=== PATIENT | female | born 2000 | race Caucasian/White ===

== ENCOUNTER 2025-02-01 13:22 | Outpatient (AMB) | payer OTHER, SELFPAY ==
--- NOTE | 2025-02-01 13:24 | MHC.PC.OV ---
Vital Signs 02/01/25 13:25 Height 5 ft 2.75 in Weight 141 lb 4 oz BMI 25.2 BP 114/72 Blood Pressure Location Lt brachial Position Sitting Pulse 112 H Pulse Source Pulse Oximeter Temp 97.1 F Temp Source Temporal Artery Scan Pulse Oximetry (%) 98 Oxygen Delivery Method Room Air Intake Visit Reasons: establish care Accompanied by: Mother Allergies No Known Allergies Allergy (Verified 02/01/25 13:45) Medication List - Last Reviewed 02/01/25 by Rhona Joseph CMA brivaracetam (Briviact) 100 mg PO BID clobazam 20 mg PO BEDTIME clonazepam 2 mg PO .prn lamotrigine 200 mg PO BID Tobacco use date assessed: 02/01/25 Dental Screening Dental Screen Date: 02/01/25 Did you have a dental visit in the last 12 months?: No Did you have a dental problem in the last 6 months where you did not have access to dental care?: No Was dental information given to patient?: No HPI establish care HPI Details 24 year old female coming to the office for the first time. Presenting with seizure disorder management. The patient has experienced seizures since 13 months of age, with no identified triggers. Recent increase in seizure frequency since November 2022, with two grand mal seizures occurring [id number] on December 18. Seizures are managed with Briviact, clonazepam, and lamotrigine, but these medications cause significant fatigue. The patient experiences severe depression and anxiety, exacerbated by a family tragedy. No prior medication for depression due to concerns about interactions with current seizure medications. The patient reports constipation and abdominal pain, with symptoms suggestive of irritable bowel syndrome. [facility] Surgical History No pertinent past surgical history Family History Mother Substance abuse Mental health disorder Father Mental health disorder Sister Mental health disorder Brother Motorcycle accident Social History Household Members: Family Housing: House Alcohol intake: never Patient Tobacco Use Status: Never used Tobacco e-Cigarette/Vaping Use: Never Used service: No Current occupational status: unemployed Cognitive needs: No Hearing needs: No Vision needs: Yes Female Reproductive History Menstrual control method: none Questionnaire PHQ-9 Over the last 2 weeks, how often have you been bothered by any of the following problems? 1. Little interest or pleasure in doing things: not at all 2. Feeling down, depressed, or hopeless: nearly every day 3. Trouble falling or staying asleep, or sleeping too much: nearly every day 4. Feeling tired or having little energy: nearly every day 5. Poor appetite or overeating: nearly every day 6. Feeling bad about yourself - or that you are a failure or have let yourself or your family down: more than half the days 7. Trouble concentrating on things, such as reading the newspaper or watching television: nearly every day 8. Moving or speaking so slowly that other people could have noticed. Or the opposite - being so fidgety or restless that you have been moving around a lot more than usual: nearly every day 9. Thoughts that you would be better off or of hurting yourself in some way: not at all Total score: 20 Depression Screening Interpretation: Positive (Declines medication - referral for counseling placed ) Depression Screening Follow-up: Existing condition Depression Screening Done: Yes 09246 - PHQ-9 Billing: Yes Source: Developed by Drs. Mina Berrios, Antonia Hassan, Delfino Centeno and colleagues, with an educational walt from [email or web address]. Thrive Questionnaire Date Thrive assessed: 01/25/25 I am a: Parent/Caregiver What is your living situation today?: I have a steady place to live Within the past 12 months, did the food you bought not last and you didn't have the money to get more?: Never true Within the past 12 months, did you worry whether your food would run out before you got money to buy more?: Never true Do you have trouble paying for medicines?: No Do you have trouble getting transportation to medical appointments?: No Do you have trouble paying your heating and electricity bill?: No Do you have trouble taking care of your child, family member or friend?: Yes Do you have trouble with day-to-day activities such as bathing, preparing meals, shopping, managing finances, etc.?: Yes Are you currently unemployed and looking for a job?: Yes Are you interested in more education?: No Please select the resources that you would like help with: None Currently or been in a relationship where the following occur: No concerns reported THRIVE Score: 0 AUDIT C Alcohol Use Questionnaire (AUDIT-C) 1. How often do you have a drink containing alcohol?: Never 3. How often do you have six or more drinks on one occasion?: Never Total Score: 0 SYLVIA-7 AMB Questionnaire SYLVIA-7 Date SYLVIA - 7 assessed: 02/01/25 Feeling nervous, anxious, or on edge: 2 = More than half the days Not being able to stop or control worryin = Nearly every day Worrying too much about different things: 3 = Nearly every day Trouble relaxin = Nearly every day Being so restless that it is hard to sit still: 3 = Nearly every day Becoming easily annoyed or irritable: 3 = Nearly every day Feeling afraid as if something awful might happen: 3 = Nearly every day Total SYLVIA-7 score (0-4 normal; 5-9 mild; 10-14 moderate; 15-21 severe): 20 Source: Developed by Drs. Mina Berrios, Antonia Hassan, Delfino Centeno and colleagues, with an educational walt from [email or web address]. SYLVIA-7 Assessment Billing SYLVIA-7 Assessment Tool: SYLVIA-7 Assessment 02962 Review of Systems Const Denies body aches, Denies chills, Denies fever(s), Denies headache(s) and Denies poor appetite Eyes Reports no additional complaints ENT Denies dizziness and Denies headache(s) Card Denies chest pain, Denies lightheadedness and Denies dyspnea Resp Denies cough and Denies dyspnea GI Denies abdominal pain, Reports constipation, Denies diarrhea, Denies nausea and Denies vomiting Reports no additional complaints Musc Reports no additional complaints and Denies abnormal gait Skin/Breast Reports system reviewed and no additional complaints, except as documented Neuro Denies abnormal gait, Denies dizziness and Denies headache(s) Psych Reports no additional complaints Physical exam (Primary Care) Vital Signs: Last Vital Signs Temp 97.1 F 02/01/25 13:25 Pulse 112 H 02/01/25 13:25 BP 114/72 02/01/25 13:25 Pulse Ox 98 02/01/25 13:25 Oxygen Delivery Method Room Air 02/01/25 13:25 BMI result Body Mass Index 25.2 Tobacco/Smoking Status: Tobacco use Status Tobacco use date assessed 02/01/25 02/01/25 13:31 Patient Tobacco Use Status Never used Tobacco 02/01/25 13:34 e-Cigarette/Vaping Use Never Used 02/01/25 13:31 PHQ-9: PHQ-9 Score PHQ-9: Total score 20 02/01/25 13:46 Depression Screening Interpretation: Positive (Declines medication - referral for counseling placed ) Depression Screening Follow-up: Existing condition Thrive Assessment: Date of Thrive Assessment Date Thrive assessed 01/25/25 02/01/25 13:31 Currently or been in a relationship where the following occur: No concerns reported Const General: cooperative, healthy appearing, comfortable and no acute distress Orientation/consciousness: patient oriented x3 HENMT Head: Yes normocephalic Ears: hearing grossly normal bilaterally General nose exam: Normal external nose present Eyes General: appearance normal, both eyes and all related structures Conjunctivae: conjunctivae normal Neck Neck: Yes full ROM and Yes no lymphadenopathy Resp Effort & Inspection: normal respiratory effort Auscultation: clear to auscultation bilaterally, no crackles, no rales, no rhonchi and no wheezes Cardio Rate: regular rate Rhythm: regular rhythm Skin General skin exam: no rashes or lesions noted Neuro General: patient oriented x3 Gait exam (Neuro): Normal gait present Extrem General: Yes normal to inspection, Yes full ROM and No edema Psych Affect: normal affect Attitude: cooperative Insight: Good insight present (Psych) Judgement: Good judgement present (Psych) Coding Level of Care Code New Pt Level 4 (76853) Diagnoses Seizure disorder G40.909 Anxiety F41.9 Depression F32.A Constipation K59.00 Additional Codes SYLVIA-7 Assessment Billing - SYLVIA-7 Assessment Tool: SYLVIA-7 Assessment 01095 ([id number]) PHQ-9 - 95745 - PHQ-9 Billing: Yes ([id number]) Assessment & Plan Assessment & Plan (1) Seizure disorder: Comment: [facility] - Code(s): G40.909 - Epilepsy, unspecified, not intractable, without status epilepticus Category: Medical Plan: Patient is currently following with [facility] for management of her seizure disorder. She is on Briviact, clobazam, clonazepam and lamotrigine as her current medication regimen. She does mentioned breakthrough seizures that her neurologist is aware of and she is currently undergoing medication adjustments with her neurologist. (2) Anxiety: Code(s): F41.9 - Anxiety disorder, unspecified Category: Medical Plan: Patient has a history of anxiety and depression that has recently exacerbated in 2022 by family tragedy. She is not interested in medications at this time and states that she is anxious when it comes to medications. She is interested in counseling referral which was placed today. She agrees to reach out if she is interested in medical management or further evaluation. (3) Depression: Code(s): F32.A - Depression, unspecified Category: Medical Plan: See above (4) Constipation: Code(s): K59.00 - Constipation, unspecified Category: Medical Plan: Discussed with patient 3 rows of constipation; drinking plenty of water, increase fiber intake and exercise as tolerated. Her symptoms seem very similar to irritable bowel syndrome and I discussed adding fiber supplement as well as a low FODMAP diet to try and address her symptoms. If constipation worsens or does not improve plan to refer to gastroenterology for further evaluation and treatment. I also discussed adding MiraLax daily Denies any blood in the stool, abdominal pain, nausea or vomiting. Plan The patient will continue to be monitored for seizure disorder with regular follow-ups with the neurologist every six months. Adjustments to the current medication regimen, including Briviact, clonazepam, and lamotrigine, will be considered based on seizure frequency and side effects such as fatigue. Blood work will be conducted to monitor medication levels and vitamin D status, as these have been identified as potential factors influencing seizure activity. For the management of depression and anxiety, a referral for counseling has been made. Dietary modifications, including increased fiber intake and a low FODMAP diet, are recommended to address gastrointestinal symptoms suggestive of irritable bowel syndrome. The patient is advised to maintain adequate hydration and consider fiber supplements to alleviate constipation. This note was constructed using voice recognition software. While every effort has been made to ensure accuracy and hand folder, still areas may have been included sometimes these areas may affect the content or meeting of the given symptoms. Total time spent caring for the patient today was 30 minutes. This includes time spent before the visit reviewing the chart, time spent during the visit, and time spent after the visit and documentation. Patient was informed and verbally consented to the use of an ambient scribe for clinic note documentation during this visit. Orders: Orders Transglutaminase Ab IgG Today K59.00 - Constipation, unspecified Comprehensive Met. Panel Today G40.909 - Epilepsy, unspecified, not intractable, without status epilepticus, Z00.00 - Encounter for general adult medical examination without abnormal findings Vitamin D 25-OH Total Today G40.909 - Epilepsy, unspecified, not intractable, without status epilepticus, Z00.00 - Encounter for general adult medical examination without abnormal findings Complete Blood Count Auto Diff Today G40.909 - Epilepsy, unspecified, not intractable, without status epilepticus, Z00.00 - Encounter for general adult medical examination without abnormal findings Vitamin B12 and Folate Today G40.909 - Epilepsy, unspecified, not intractable, without status epilepticus, Z13.21 - Encounter for screening for nutritional disorder TSH reflex Free T4 Today G40.909 - Epilepsy, unspecified, not intractable, without status epilepticus, Z00.00 - Encounter for general adult medical examination without abnormal findings Free T4 (Free Thyroxine) Today G40.909 - Epilepsy, unspecified, not intractable, without status epilepticus, Z00.00 - Encounter for general adult medical examination without abnormal findings IRON PROFILE Today G40.909 - Epilepsy, unspecified, not intractable, without status epilepticus Referrals Counseling Referral F32.A - Depression, unspecified, F41.9 - Anxiety disorder, unspecified
[2025-02-01 13:25] VITALS: BP 114/72; PULSE 112; TEMP 36.2; O2SAT 98; BMI 25.2
== END 2025-02-01 14:26 | disposition home or self-care (01) ==
LOC: HO.HMCH 13:23
DX: G40.909 Epilepsy, unspecified, not intractable, without status epilepticus (principal); F41.9 Anxiety disorder, unspecified; F32.A Depression, unspecified; K59.00 Constipation, unspecified

== ENCOUNTER → 2025-02-01 13:22 | Outpatient (BNVA) | payer OTHER, SELFPAY | DX: G40.909 Epilepsy, unspecified, not intractable, without status epilepticus (principal); F41.9 Anxiety disorder, unspecified; F32.A Depression, unspecified; K59.00 Constipation, unspecified; Z79.899 Other long term (current) drug therapy; Z13.31 Encounter for screening for depression; Z13.30 Encounter for screening examination for mental health and behavioral disorders, unspecified | CPT/HCPCS: 96127; 99202 ==

== ENCOUNTER 2025-02-04 13:03 | Outpatient (REF) | payer OTHER, SELFPAY ==
[2025-02-04 13:25] LABS: MANUAL DIFF FLAG NO
[2025-02-04 14:15] LABS: Hematocrit 39.9 % (37.0-47.0); Hemoglobin 12.6 g/dl (12.0-16.0); Imm Gran Abs Auto 0.03 X10*3/uL (0.00-0.03); Imm Gran Pct Auto 0.4 % (0.0-0.4); Lymphocytes Absolute Auto 2.0 X10*3/uL (1.2-4.9); Mean Corpuscular HGB Conc 31.6 g/dl (31.0-35.0); Mean Corpuscular Hemoglobin 26.3 pg (27.0-33.0); Mean Corpuscular Volume 83.3 fL (80.0-98.0); NRBC Abs Auto 0.000 X10*3/uL (0.0-0.012); NRBC Pct Auto 0.0 /100WBC (0.0-0.2); Platelet Count 315 X10*3/uL (160-400); Red Blood Count 4.79 X10*6/uL (4.20-5.50); White Blood Count 7.4 X10*3/uL (4.8-10.8)
[2025-02-04 14:53] LABS: Alanine Aminotransferase 14 U/L (0-31); Albumin Level 4.8 g/dL (3.5-5.0); Alkaline Phosphatase 95 U/L (39-117); Anion Gap 11 (12-20); Aspartate Amino Transferase 19 U/L (5-31); Blood Urea Nitrogen 5 mg/dL (9-16); Calcium 9.4 mg/dL (8.4-10.2); Carbon Dioxide 28 mmol/L (22-29); Chloride 105 mmol/L (96-108); Estimated Glomerular Filt Rate > 60; Iron 38 mcg/dL (30-160); Percent Iron Saturation 11 % (15-50); Potassium 3.7 mmol/L (3.3-5.1); Sodium 140 mmol/L (135-145); Total Iron Binding Capacity 357 mcg/dL (228-428); Total Protein 7.7 g/dL (6.5-8.0); Unsaturated Iron Binding 319 ug/dL
[2025-02-04 15:14] LABS: Free T4 (Free Thyroxine) 1.07 ng/dL (0.71-1.85)
[2025-02-04 15:20] LABS: Folate 9.5 ng/mL (> or = 4.0); Vitamin B12 340 pg/mL (200-900)
[2025-02-08 15:34] LABS: Transglutaminase Ab IgG <1.0 U/mL
== END 2025-02-04 13:04 | disposition home or self-care (01) ==
LOC: HO.LAB 13:03
DX: Z00.00 Encounter for general adult medical examination without abnormal findings (principal); G40.909 Epilepsy, unspecified, not intractable, without status epilepticus; Z13.21 Encounter for screening for nutritional disorder; K59.00 Constipation, unspecified
CPT/HCPCS: 36415; 80053; 82306; 82607; 82746; 83540; 84439; 84443; 85025; 86364

== ENCOUNTER 2025-02-07 15:53 | Outpatient (AMB) | payer OTHER, SELFPAY ==
--- NOTE | 2025-02-07 15:56 | A.OFFPC_ITS ---
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: No Accompanied by: Self / Same As Patient Allergies No Known Allergies Allergy (Verified 02/07/25 16:30) Medication List - Last Reconciled 02/07/25 by Jennifer Hylton PA-C brivaracetam (Briviact) 100 mg PO BID clobazam 20 mg PO BEDTIME clonazepam 2 mg PO .prn lamotrigine 200 mg PO BID Tobacco use date assessed: 02/07/25 Dental Screening Dental Screen Date: 02/07/25 Did you have a dental visit in the last 12 months?: No Did you have a dental problem in the last 6 months where you did not have access to dental care?: No Was dental information given to patient?: No HPI PE HPI Details The patient is a 24-year-old female presenting with an annual wellness examination. The patient has a history of epilepsy with seizures triggered by stress, anxiety, and temperature changes. The patient has been seizure-free for the most part but experiences seizures under stress or exposure to flashing lights. The patient is developmentally delayed, functioning approximately seven years behind her chronological age. The patient's iron levels are low normal, with a level of 38, and her blood cells are not utilizing iron effectively. The patient's vitamin D level is low at 20, and supplementation is recommended. Pap smear: Up-to-date through gynecology Vaccines: Up-to-date [facility] Surgical History No pertinent past surgical history Family History Mother Substance abuse Mental health disorder Father Mental health disorder Sister Mental health disorder Brother Motorcycle accident Social History Household Members: Family Housing: House Alcohol intake: never Patient Tobacco Use Status: Never used Tobacco e-Cigarette/Vaping Use: Never Used service: No Current occupational status: unemployed Cognitive needs: No Hearing needs: No Vision needs: Yes Female Reproductive History Menstrual control method: none Questionnaire Thrive Questionnaire Date Thrive assessed: 02/07/25 I am a: Parent/Caregiver What is your living situation today?: I have a steady place to live Within the past 12 months, did the food you bought not last and you didn't have the money to get more?: Never true Within the past 12 months, did you worry whether your food would run out before you got money to buy more?: Never true Do you have trouble paying for medicines?: No Do you have trouble getting transportation to medical appointments?: No Do you have trouble paying your heating and electricity bill?: No Do you have trouble taking care of your child, family member or friend?: Yes Do you have trouble with day-to-day activities such as bathing, preparing meals, shopping, managing finances, etc.?: Yes Are you currently unemployed and looking for a job?: No Are you interested in more education?: No Please select the resources that you would like help with: None Currently or been in a relationship where the following occur: No concerns reported THRIVE Score: 0 SYLVIA-7 AMB Questionnaire SYLVIA-7 Date SYLVIA - 7 assessed: 02/07/25 Source: Developed by Drs. Mina Berrios, Antonia Hassan, Delfino Centeno and colleagues, with an educational walt from [employer]. Review of Systems Const Denies body aches, Denies chills, Denies fever(s), Denies headache(s) and Denies poor appetite Eyes Reports no additional complaints ENT Denies dysphagia, Denies dizziness, Denies headache(s) and Denies odynophagia Card Denies chest pain, Denies syncope, Denies edema, Denies irregular heart rhythm, Denies lightheadedness and Denies dyspnea Resp Denies cough and Denies dyspnea GI Denies abdominal pain, Denies constipation, Denies dysphagia, Denies diarrhea, Denies nausea, Denies odynophagia and Denies vomiting Reports no additional complaints Musc Reports no additional complaints and Denies abnormal gait Skin/Breast Reports system reviewed and no additional complaints, except as documented Neuro Denies abnormal gait, Denies dizziness, Denies syncope and Denies headache(s) Psych Reports no additional complaints Physical exam (Primary Care) Vital Signs: Last Vital Signs BP 118/84 02/07/25 15:57 Oxygen Delivery Method Room Air 02/07/25 15:57 BMI result Body Mass Index 25.6 Tobacco/Smoking Status: Tobacco use Status Tobacco use date assessed 02/07/25 02/07/25 16:02 Patient Tobacco Use Status Never used Tobacco 02/07/25 16:02 e-Cigarette/Vaping Use Never Used 02/07/25 16:02 Thrive Assessment: Date of Thrive Assessment Date Thrive assessed 02/07/25 02/07/25 16:02 Currently or been in a relationship where the following occur: No concerns reported Const General: cooperative, healthy appearing, comfortable and no acute distress Orientation/consciousness: patient oriented x3 HENMT Head: Yes normocephalic Ears: hearing grossly normal bilaterally, external ears normal, TM's normal bilaterally and EAC's normal General nose exam: Normal external nose present Face and sinus: Yes normal facial exam and Yes sinuses nontender Mouth: Normal oral and palatal mucosa present and tongue normal Throat: Yes posterior oropharynx normal Eyes General: appearance normal, both eyes and all related structures Conjunctivae: conjunctivae normal Pupils: Equal, round and reactive pupils present EOM: EOMs intact bilaterally and No Nystagmus present Neck Neck: Yes normal visual inspection, Yes full ROM and Yes no lymphadenopathy Chest Chest palpation & inspection: normal inspection of the chest Resp Effort & Inspection: normal respiratory effort Auscultation: clear to auscultation bilaterally, no crackles, no rales, no rhonchi, no wheezes and breath sounds present Cardio Rate: regular rate Rhythm: regular rhythm Peripheral pulses: radial pulses present and dorsalis pedis present GI Inspection: Yes normal to inspection and No Abdominal wall edema Palpation (GI): Soft to palpation, not firm and nontender Auscultation: normal bowel sounds Rectal Exam - Female: deferred General: Yes no CVA tenderness Back/Spine/Pelvis Back: no CVA tenderness Skin General skin exam: no rashes or lesions noted Neuro General: patient oriented x3 Cranial nerves: Yes Equal, round and reactive pupils present, Yes Midline tongue present, Yes Ability to bilaterally elevate shoulders present and No Nystagmus present Gait exam (Neuro): Normal gait present Extrem General: Yes normal to inspection, Yes full ROM, No no pedal edema and No edema Psych Speech and movement: Normal speech and movement present Affect: normal affect Insight: Good insight present (Psych) Judgement: Good judgement present (Psych) Coding Level of Care Code Est Pt Prev Care 18-39y([id number]) Diagnoses Anxiety F41.9 Depression F32.A Seizure disorder G40.909 Constipation K59.00 Annual physical exam Z00.00 Learning disability F81.9 Iron (Fe) deficiency anemia D50.9 Vitamin D deficiency E55.9 Assessment & Plan Assessment & Plan (1) Anxiety: Code(s): F41.9 - Anxiety disorder, unspecified Category: Medical Plan: Patient has a history of anxiety and depression that has recently exacerbated in 2022 by family tragedy. She is not interested in medications at this time and states that she is anxious when it comes to medications. She is interested in counseling referral which was placed at last visit. She agrees to reach out if she is interested in medical management or further evaluation. (2) Depression: Code(s): F32.A - Depression, unspecified Category: Medical Plan: See above (3) Seizure disorder: Comment: [facility] - Code(s): G40.909 - Epilepsy, unspecified, not intractable, without status epilepticus Category: Medical Plan: Patient is currently following with [facility] for management of her seizure disorder. She is on Briviact, clobazam, clonazepam and lamotrigine as her current medication regimen. She does mentioned breakthrough seizures that her neurologist is aware of and she is currently undergoing medication adjustments with her neurologist. (4) Constipation: Code(s): K59.00 - Constipation, unspecified Category: Medical Plan: Discussed with patient 3 rows of constipation; drinking plenty of water, increase fiber intake and exercise as tolerated. Her symptoms seem very similar to irritable bowel syndrome and I discussed adding fiber supplement as well as a low FODMAP diet to try and address her symptoms. If constipation worsens or does not improve plan to refer to gastroenterology for further evaluation and treatment. I also discussed adding MiraLax daily Denies any blood in the stool, abdominal pain, nausea or vomiting. (5) Annual physical exam: Code(s): Z00.00 - Encounter for general adult medical examination without abnormal findings Category: Medical Plan: Patient is up-to-date on all recommended routine screenings and vaccinations for her age. Healthy diet and regular exercise is encouraged. Blood work is up-to-date and has been reviewed with the patient today. Plan to follow up yearly or sooner as needed (6) Learning disability: Code(s): F81.9 - Developmental disorder of scholastic skills, unspecified Category: Social Hx Plan: She is working on getting services at home with her mom. (7) Iron (Fe) deficiency anemia: Code(s): D50.9 - Iron deficiency anemia, unspecified Category: Medical Plan: Recommend dietary intake of iron along with vitamin-C supplementation. (8) Vitamin D deficiency: Code(s): E55.9 - Vitamin D deficiency, unspecified Category: Medical Plan: Prescription sent to pharmacy Plan The patient will continue with her current epilepsy management plan, as she is mostly seizure-free, but will avoid stress and flashing lights to prevent seizures. For her developmental delay, supervision will continue to ensure safety in daily activities. Iron supplementation is recommended either through dietary changes or acri-fve-[id number] supplements, with caution regarding potential constipation. Vitamin D supplementation is advised due to low levels, especially if sunlight exposure is limited. The patient is advised to monitor migraine triggers and manage them accordingly, including avoiding heavy earphones and managing hair weight. For fatigue, the impact of current medications will be monitored, and adjustments will be considered if necessary. Peripheral edema management includes leg elevation and the use of compression stockings if needed. This note was constructed using voice recognition software. While every effort has been made to ensure accuracy and service worker helper, still areas may have been included sometimes these areas may affect the content or meeting of the given symptoms. Total time spent caring for the patient today was 30 minutes. This includes time spent before the visit reviewing the chart, time spent during the visit, and time spent after the visit and documentation. Patient was informed and verbally consented to the use of an ambient scribe for clinic note documentation during this visit. Medications: New cholecalciferol (vitamin D3) 25 mcg PO DAILY 90 caps 3RF
[2025-02-07 15:57] VITALS: BP 118/84; BMI 25.6
--- OUTSIDE RECORDS SUMMARY | 2025-02-07 16:53 | XMS_ITS ---
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 ProblemAct [facility] Developmental academic disorder active 2007-10-08 ProblemAct [facility] Seizure active 2007-11-10 ProblemAct [facility] Immunizations Vaccine Date Source Lot Number Status COVID-19, mRNA, LNP-S, PF, 3 0 mcg/0.3 mL dose ([employer]) 02/09/2021 [facility] completed COVID-19, mRNA, LNP-S, PF, 3 0 mcg/0.3 mL dose ([employer]) 01/10/2021 [facility] completed influenza, injectable, quadr ivalent, preservative free 08/03/2020 [facility] [id number] completed meningococcal MCV4P 02/25/2019 [facility] [id number] compl eted HPV, quadrivalent 12/21/2013 [facility] [id number] complet ed meningococcal MCV4P 12/21/2013 [facility] [id number] compl eted Tdap 12/21/2013 [facility] [id number] completed influenza, seasonal, injectable 07/17/2009 [facility] [id number] completed novel [id number] 07/17/2009 [facility] [id number] ompleted novel [id number], nasal 06/15/2009 [facility] [id number] completed influenza, unspecified formulation 06/02/2007 [facility] completed DTaP, unspecified formulation 03/20/2007 [facility] completed IPV 03/20/2007 [facility] completed varicella 03/20/2007 [facility] completed MMR 2006 [facility] completed DTaP, unspecified formulation 05/24/2003 [facility] completed Hib, unspecified formulation 05/24/2003 [facility] completed MMR 04/04/2003 [facility] completed pneumococcal conjugate PCV 7 04/04/2003 [facility] completed Hep B, unspecified formulation 2002 [facility] completed DTaP, unspecified formulation 2002 [facility] completed Hib, unspecified formulation 2002 [facility] completed IPV 2002 [facility] completed pneumococcal conjugate PCV 7 2002 [facility] completed DTaP, unspecified formulation 2002 [facility] completed Hib, unspecified formulation 2002 [facility] completed IPV 2002 [facility] completed pneumococcal conjugate PCV 7 2002 [facility] completed DTaP, unspecified formulation 2002 [facility] completed Hib, unspecified formulation 2002 [facility] completed IPV 2002 [facility] completed pneumococcal conjugate PCV 7 2002 [facility] completed varicella 2002 [facility] completed Hep B, unspecified formulation 2002 [facility] completed Hep B, unspecified formulation 2002 [facility] completed Encounters Encounter Type Encounter Reason Primary Diagnosis Location Date Ambulatory Pilonidal cyst with abscess Pilonidal cyst with abscess [facility] 09/08/2023 Ambulatory Dysuria [facility] 08/14/2023 Ambulatory [facility] 12/31/2022 Ambulatory [facility] 05/22/2022 Ambulatory [facility] 04/23/2021 Care Team Organization Name Specialty Phone Email Start Date End Da te [facility] 2021 [facility] 202005/22/2022
== END 2025-02-07 17:00 | disposition home or self-care (01) ==
LOC: HO.HMCH 15:53
DX: F41.9 Anxiety disorder, unspecified (principal); F32.A Depression, unspecified; G40.909 Epilepsy, unspecified, not intractable, without status epilepticus; K59.00 Constipation, unspecified; Z00.00 Encounter for general adult medical examination without abnormal findings; F81.9 Developmental disorder of scholastic skills, unspecified; D50.9 Iron deficiency anemia, unspecified; E55.9 Vitamin D deficiency, unspecified

== ENCOUNTER → 2025-02-07 15:53 | Outpatient (BNVA) | payer OTHER, SELFPAY | DX: Z00.00 Encounter for general adult medical examination without abnormal findings (principal); F41.9 Anxiety disorder, unspecified; F32.A Depression, unspecified; G40.909 Epilepsy, unspecified, not intractable, without status epilepticus; K59.00 Constipation, unspecified; F81.9 Developmental disorder of scholastic skills, unspecified; D50.9 Iron deficiency anemia, unspecified; E55.9 Vitamin D deficiency, unspecified; Z79.899 Other long term (current) drug therapy | CPT/HCPCS: 99395 ==